=== PATIENT | male | born 1980 | race Caucasian/White ===

== ENCOUNTER 2018-04-04 16:42 | Outpatient (CLI) | payer OTHER | END 2018-04-04 16:43 | disposition critical access hospital (66) | LOC: EMS 16:42 | PROVIDERS: ATTEND Surgery | DX: R55 Syncope and collapse (principal); R51 Headache | CPT/HCPCS: A0425; A0427 ==

== ENCOUNTER 2018-04-04 17:02 | Emergency (ER) | payer OTHER ==
[2018-04-04] MEDS ORDERED: DEXAMETHASONE 10 MG/ML VIAL PO STA (17:24)
[2018-04-04] MEDS ORDERED: FAMOTIDINE 20 MG in SODIUM CHLORIDE 0.9% 50 ML IV ONE (17:24)
--- NOTE | 2018-04-04 17:28 | ED Physician Documentation ---
History of Present Illness - Stated complaint Stated Complaint: ALLERGIC RX - Chief complaint Chief Complaint: Allergic Rx - History obtained from History obtained from: Patient - Additonal information Additional information: 38-year-old male presents to the emergency department for evaluation as an allergic reaction. The patient reports being stung by a bee and developed tongue swelling and felt like his throat was closing. The patient injected his normal EpiPen into his arm. EMS was called. The patient was again dosed with epinephrine by EMS. Presently, the patient feels much improved and is denying tongue swelling, throat swelling or difficulty breathing. Symptoms were described as severe and presently are mild. No other associated symptoms. Review of Systems Constitutional: denies: Fever, Chills Eyes: denies: Discharge Ears: denies: Ear pain Nose: denies: Congestion, Epistaxis Throat: denies: Oral lesions / sores, Sore throat Cardiac: denies: Chest pain / pressure Respiratory: reports: Dyspnea GI: denies: Abdominal Pain : denies: Dysuria Skin: denies: Rash Musculoskeletal: denies: Back pain Neurologic: denies: Generalized weakness Immunocompromised: denies: Chemotherapy PD PAST MEDICAL HISTORY - Present Medications Home Medications: Ambulatory Orders Medication Instructions Recorded Confirmed Epinephrine [Epipen 2-Mehran] 0.3 mg IJ PRN PRN #1 auto.injct 04/04/18 - Allergies Allergies/Adverse Reactions: Allergies Allergy/AdvReac Type Severity Reaction Status Date / Time cat dander Allergy Respiratory Verified 04/04/18 17:28 PD ED PE NORMAL - General General: Alert and oriented X 3, No acute distress, Well developed/nourished - HEENT HEENT: Atraumatic, PERRL, EOMI, Ears normal, Moist mucous membranes, Other (The patient's tongue is within normal limits, there is no posterior pharynx swelling , there is no fullness in the neck and no stridor) - Neck Neck: Supple, no meningeal sign - Cardiac Cardiac: RRR, Strong equal pulses - Respiratory Respiratory: No respiratory distress, Clear bilaterally - Abdomen Abdomen: Normal bowel sounds, Non tender, Non distended - Derm Derm: Normal color - Extremities Extremities: No deformity, Normal ROM s pain, No edema - Neuro Neuro: Alert and oriented X 3, Normal speech - Psych Psych: Normal mood Results - Vitals Vitals: Vital Signs - 24 hr 04/04/18 04/04/1804/04/18 17:07 17:32 18:22 Temperature 36.1 C L Heart Rate 94 88 93 Respiratory 18 20 20 Rate Blood Pressure 122/94 H 120/70 135/76 H O2 Saturation 100 100 98 04/04/18 19:15 Temperature Heart Rate 98 Respiratory 18 Rate Blood Pressure 111/68 O2 Saturation 96 Oxygen O2 Source Room air PD MEDICAL DECISION MAKING - ED course ED course: The patient was observed in emergency department for 3-1/2 hours and had no recurrence of his symptoms and his tongue swelling, throat tightness and shortness of breath have resolved. The patient appears appropriate at this time for discharge home. I will refill his epinephrine pens. The patient will follow primary care. I discussed warning signs and recommended returning to the emergency department immediately for worsening or concerns. - Sepsis Event Vital Signs: Vital Signs - 24 hr 04/04/18 04/04/18 04/04/18 17:07 17:32 18:22 Temperature 36.1 C L Heart Rate 94 88 93 Respiratory 18 20 20 Rate Blood Pressure 122/94 H 120/70 135/76 H O2 Saturation 100 100 98 04/04/18 19:15 Temperature Heart Rate 98 Respiratory 18 Rate Blood Pressure 111/68 O2 Saturation 96 Oxygen O2 Source Room air Departure - Departure Disposition: 01 Home, Self Care Clinical Impression: Allergic reaction Qualifiers: Encounter type: initial encounter Qualified Code(s): T78.40XA - Allergy, unspecified, initial encounter Condition: Good Instructions: ED Bite Sting Insect Gen Allergic React Follow-Up: TU SOARES MD [Primary Care Provider] - Within 1 week Prescriptions: Epinephrine [Epipen 2-Mehran] 0.3 mg IJ PRN PRN #1 auto.injct PRN Reason: Allergy Symptoms Comments: Return to the emergency department for worsening symptoms or any concerns
[2018-04-04 20:49] VITALS: BP 122/62
== END 2018-04-04 20:49 | disposition home or self-care (01) ==
LOC: ED 17:02
DX: T63.441A Toxic effect of venom of bees, accidental (unintentional), initial encounter (principal); R22.9 Localized swelling, mass and lump, unspecified
CPT/HCPCS: 96365; 99283; J7040

== ENCOUNTER 2022-09-14 09:21 | Day surgery (SDC) | payer OTHER ==
[~2022-09-14 09:21] MED LIST: CEFAZOLIN 2G/50ML 0.9% NS 2 GM/50 ML BAG IV ONE
[2022-09-14] MEDS ORDERED: LACTATED RINGERS 1,000 ML IV ONE (09:50)
[2022-09-14] MEDS ORDERED: BUPIVACAINE 0.5% PF 30 ML VIAL ONE (11:44)
--- NOTE | 2022-09-14 11:55 | ANESTHESIA ---
Pre-Anesthesia VS, & Labs - Diagnosis chronic cholecystitis - Procedure lap nicola Vital Signs: Temp Pulse Resp BP Pulse Ox O2 Flow Rate 36.2 C L 62 16 145/89 H 98 09/14/22 09:56 09/14/22 09:56 09/14/22 09:56 09/14/22 09:56 09/14/22 09:56 Height: 5 ft 10 in Weight (kg): 102 kg Body Mass Index: 32.2 BMI Classification: Obese - NPO >8 hours Home Medications and Allergies Home Medications: Ambulatory Orders Ibuprofen [Motrin] 600 mg PO Q6H PRN 09/06/22 Ibuprofen [Motrin] 600 mg PO Q6H PRN 09/06/22 Allergies/Adverse Reactions: Allergies Allergy/AdvReac Type Severity Reaction Status Date / Time hornet venom Allergy Anaphylaxis Verified 09/06/22 11:10 Anes History & Medical History - Anesthetic History Family history of Anesthesia Complications: Denies Family history of Malignant Hyperthermia: Denies - Medical History Cardiovascular: reports: None Pulmonary: reports: Sleep apnea, CPAP use Gastrointestinal: reports: Cholelithiasis Urinary: reports: None Neuro: reports: None Musculoskeletal: reports: None Endocrine/Autoimmune: reports: None Blood Disorders: reports: None Skin: reports: None Smoking Status: Never smoker Psychosocial: reports: No issues indicated History of Cancer?: No Exam General: Alert, Oriented x3, Cooperative, No acute distress Dental: WNL Mouth Openin Fingerbreadth Neck Mobility: Normal Mallampati classification: II Thyromental Distance: 4-6 cm Mental/Cognitive Status: Alert/Oriented X3, Normal for patient Plan Anesthesia Type: General Consent for Procedure(s) Verified and Reviewed: Yes Code Status: Attempt Resuscitation ASA classification: 2-Mild systemic disease Is this case an emergency?: No
[2022-09-14] MEDS ORDERED: fentaNYL 100 MCG/2 ML VIAL ONE (12:02)
[2022-09-14] MEDS ORDERED: ROCURONIUM 50 MG/5 ML VIAL ONE ×2 (12:02→13:58)
[2022-09-14] MEDS ORDERED: MIDAZOLAM 2 MG/2 ML VIAL ONE (12:02)
[2022-09-14] MEDS ORDERED: PROPOFOL 200 MG/20 ML VIAL IVP ONE (12:02)
[2022-09-14] MEDS ORDERED: BUPIVACAINE 0.5% PF 30 ML VIAL INFIL ONE (13:35)
[2022-09-14] MEDS ORDERED: DEXAMETHASONE 4 MG/ML VIAL ONE (13:45)
[2022-09-14] MEDS ORDERED: ONDANSETRON 4 MG/2 ML VIAL ONE (13:45)
[2022-09-14] MEDS ORDERED: HYDROmorphone 1 MG/ML CARPUJECT ONE (13:59)
[2022-09-14] MEDS ORDERED: SUGAMMADEX 200 MG/2 ML VIAL IVP ONE (14:08)
[2022-09-14] MEDS ORDERED: KETOROLAC 30 MG/ML VIAL ONE (14:08)
[2022-09-14] MEDS ORDERED: LACTATED RINGERS 900 ML IV ONE (14:36)
[2022-09-14] MEDS ORDERED: HYDROcod/ACETAM 5/325 MG TABLET PO PRN (14:39)
[2022-09-14] MEDS ORDERED: HYDROmorphone 0.5 MG/0.5 ML SYRINGE IVP PRN ×2 (14:39→14:48)
[2022-09-14] MEDS ORDERED: ONDANSETRON 4 MG/2 ML VIAL IVP PRN ×2 (14:39→14:48)
[2022-09-14] MEDS ORDERED: ATROPINE ABBOJECT 1 MG/10 ML SYRINGE IVP PRN (14:48)
[2022-09-14] MEDS ORDERED: fentaNYL 100 MCG/2 ML VIAL IVP PRN (14:48)
[2022-09-14] MEDS ORDERED: NALOXONE 0.4 MG/ML VIAL IVP PRN (14:48)
[2022-09-14] MEDS ORDERED: ePHEDrine 50 MG/ML VIAL IVP PRN (14:48)
[2022-09-14] MEDS ORDERED: MORPHINE 2 MG/ML CARPUJECT IVP PRN (14:48)
[2022-09-14] MEDS ORDERED: METOCLOPRAMIDE 10 MG/2 ML VIAL IVP PRN (14:48)
[2022-09-14] MEDS ORDERED: LACTATED RINGERS 1,000 ML IV SCH (15:00)
[2022-09-14] MEDS ORDERED: HYDROcod/ACETAM 5/325 MG TABLET ONE (15:31)
[2022-09-14 15:46] VITALS: BP 135/82
--- NOTE | 2022-09-14 19:00 | ANESTHESIA POST OP EVALUATION ---
Anesthesia Post Eval - Post Anesthesia Eval Vitals: Last Vital Signs Temp 36.9 C 09/14/22 15:12 Pulse 65 09/14/22 15:45 Resp 15 09/14/22 15:45 BP 135/82 H 09/14/22 15:45 Pulse Ox 96 09/14/22 15:45 O2 Flow Rate CV Function Including HR & BP: Stable Pain Control: Satisfactory Nausea & Vomiting: Negative Mental Status: Baseline Respiratory Status: Airway Patent Hydration Status: Satisfactory Anesthesia Complications: None
--- NOTE | 2022-09-22 13:13 | OPERATIVE REPORT ---
Operative Report - General Procedure Date: 09/14/22 Planned Procedure: lap nicola Pre-Op Diagnosis: chronic cholecystitis Procedure Performed: lap nicola Post Op Diagnosis: chronic cholecystitis - Procedure Note Primary Surgeon: ashli winkler Anesthesia Technique: General ET tube, Local Pathology: gallbladder Estimated Blood Loss (mL): 2 Drain/Tube Type: Other (none) Indications: gallbladder pain Findings: chronic cholecystitis Complications: none - Other Other Information/Narrative: The patient was properly identified, brought to the operating room and placed in supine position. Sequential compression devices were placed. General endotracheal anesthesia was induced. The patient was prepped and draped in a sterile fashion and given preoperative antibiotics. Local anesthetic was given to incision areas. An incision was made in the periumbilical area. Dissection proceeded down to fascia. The fascia was incised lifted upwards and abdomen entered with a Veress needle. CO2 was insufflated to a pressure of 15. An 11 mm trocar followed by a 30 degree scope was placed. There was no evidence of injury from Veress needle or trocar placement. Under direct vision 2 5 mm trochars were placed in the right upper quadrant and an 11 mm trocar was placed in the epigastrium. Body of the gallbladder was retracted anterior. Lateral attachments were partially taken down further mobilizing the gallbladder more anterior and away from the duodenum. The infundibulum of the gallbladder was then retracted right lateral and caudad. With minimal use of cautery a large bare cystic plate area or window was carefully created. The cystic duct was inspected from right lateral and left lateral positions. [] The cystic duct was then clipped at the gallbladder and 3 times slightly proximal and sharply divided. The cystic artery was clipped at the gallbladder and then 2 times slightly proximal and sharply divided. The gallbladder was mobilized off from the bed of the liver with hook cautery. The gallbladder was placed in Endo Catch bag and brought out through the epigastric trocar site. Hemostasis was assured. Trochars were removed under direct vision. Fascia at the larger trocar sites was closed with [id number] are running 0 Vicryl suture. Subcutaneous tissue was irrigated and skin closed with interrupted 4-0 Monocryl. Dressings were applied. Patient tolerated the procedure well was awakened and brought to recovery in good condition.
== END 2022-09-14 09:22 | disposition home or self-care (01) ==
LOC: SDS 09:21
PROVIDERS: ATTEND Surgery
PROC: 0FT44ZZ Resection of Gallbladder, Percutaneous Endoscopic Approach (ICD-10-PCS; principal; 2022-09-14 10:45)
DX: K80.20 Calculus of gallbladder without cholecystitis without obstruction (principal); I10 Essential (primary) hypertension; E66.9 Obesity, unspecified; G47.30 Sleep apnea, unspecified; Z68.33 Body mass index [BMI] 33.0-33.9, adult
CPT/HCPCS: 47562; A9270; J0690; J1170; J7120